=== PATIENT | male | born 1955 | race Caucasian/White ===

== ENCOUNTER → 2019-07-29 | Day surgery (SDC) | payer MEDICARE ==
[2019-07-08 11:12] LABS: BASOPHILS # (AUTO) 0.1 (0.0-0.1); EOSINOPHILS # (AUTO) 0.3 (0.0-0.4); EOSINOPHILS % 3.5 % (0.0-6.0); HEMOGLOBIN 15.3 g/dL (14.0-18.0); LYMPHOCYTES # (AUTO) 2.3 (1.0-3.2); LYMPHOCYTES % 32.4 % (18.0-39.1); MEAN CORPUSCULAR HEMOGLOBIN 31.2 pg (28-32); MEAN CORPUSCULAR HGB CONC 33.3 g/dL (31-35); MEAN CORPUSCULAR VOLUME 93.7 fL (81-99); MONOCYTES # (AUTO) 0.6 (0.2-0.8); MONOCYTES % 8.2 % (4.4-11.3); NEUTROPHILS # (AUTO) 3.9 (2.1-6.9); NEUTROPHILS % 54.6 % (38.7-80.0); PLATELET COUNT 249 x10e3/uL (140-360); RED BLOOD COUNT 4.91 x10e6/uL (4.3-5.7); RED CELL DISTRIBUTION WIDTH 13.5 % (11.7-14.4)
--- NOTE | 2019-07-08 12:14 | Diagnostic Imaging Report ---
Chest, 2 views, 07/08/2019. History: Preop, facial malignancy. Comparison: None available. Findings: The cardiomediastinal silhouette and pulmonary vasculature are within normal limits. The lungs are clear without evidence of consolidation or pleural effusion. There are no acute osseous or soft tissue abnormalities. Impression: No acute cardiopulmonary abnormality. Signed by: Servando Hankins on 07/08/2019 12:10 PM
[~2019-07-29] MED LIST: AMLODIPINE BESY10 MG PO; BALANCED SALT SOLN (OPTH) 15 ML BTL IO ONE; BISOPROLOL PO; CEFAZOLIN SOD 1 GM/NS 50ML 50 ML IV ONE; DEXAMETHASONE SOD PHOS INJ 4 MG/ML VIAL ONE; ECOTRIN325 MG PO; EPHEDRINE SULFATE INJ 50 MG/10 ML SYR ONE; EYE LUBRICANT OPTH OINT 3.5GM TUBE OP ONE; FENTANYL CITRATE/PF 100MCG/2 ML INJ ONE; HYDROCHLOROTHIAZIDE PO; LIDOCAINE 1% W/EPINEPHRINE 20 ML VIAL ONE; LIDOCAINE HCL 2% LOCAL INJ 5 ML SDV VIAL INJ ONE; LISINOPRIL-HCT1 EACH PO; MUPIROCIN 2% OINT 22 GM TUBE ONE; ONDANSETRON HCL INJ 2MG/ML 2ML 2 MG/ML VIAL ONE; PROPOFOL IV EMULSION 10 MG/ML 20 ML VIAL ONE; SEVOFLURANE INHAL SOLN 250 ML PEN BTL ONE
--- OUTSIDE RECORDS SUMMARY | 2019-07-29 06:49 | XMS REPORT ---
Author Author [facility] Address Unknown Phone Unavailable Care Team Providers Care Christian Counselor Name Role Phone MAUREEN LEIVA Unavailable Unavailable Problems This patient has no known problems. Allergies, Adverse Reactions, Alerts This patient has no known allergies or adverse reactions. Medications This patient has no known medications. Results Test Description Test Time Test Comments Text Results Atomic Results Result Comments CHEST 2 VIEWS 2019-07-08 12:10:00 [place] [address] Patient Name: RIANA ROJAS MR #: [id number] : 1955 Age/Sex: 63/M Req #: [id number] Adm Physician: Ordered by: MAUREEN LEIVA MD Report #: [id number] Location: OR Room/Bed: Procedure: [id number] DX/CHEST 2 VIEWS Exam Date: Exam Time: REPORT STATUS: Signed Chest, 2 views, 07/08/2019. History: Preop, facial malignancy. Comparison: None available. Findings: The cardiomediastinal silhouette and pulmonary vasculature are within normal limits. The lungs are clear without evidence of consolidation or pleural effusion. There are no acute osseous or soft tissue abnormalities. Impression: No acute cardiopulmonary abnormality. Signed by: Chavo Hankins on 07/08/2019 12:10 PM Dictated By: CHAVO HANKINS MD 1210 Transcribed By: LUC on 07/08/19 1210 COPY TO: MAUREEN LEIVA MD
[2019-07-29 11:25] VITALS: BP 110/72
--- NOTE | 2019-07-29 18:53 | Operative Report ---
DATE OF PROCEDURE: 07/29/2019 SURGEON: Pasha Rizzo MD PREOPERATIVE DIAGNOSES: 1. Malignant neoplasm, right lower eyelid. 2. Malignant neoplasm, right cheek. POSTOPERATIVE DIAGNOSES: 1. Basal-cell carcinoma, right lower eyelid. 2. Basal cell carcinoma of right cheek. PROCEDURES: 1. Excision of malignant neoplasm, right lower eyelid and right cheek. 2. Flap closure of right lower eyelid. 3. Flap closure of the right cheek 25 cm2. ANESTHESIA: General. HISTORY: The patient is a 63-year-old male, who has an ulcerated neoplasm on the right cheek. He states the lesion has been present for several years and growing in size. The lesion is now encroaching on the infraorbital rim in the right lower eyelid. The risks, benefits, and alternatives of treatment were discussed with the patient and he is prepared to undergo the procedure as outlined. PROCEDURE IN DETAIL: The patient was marked preoperatively in the holding area. He was brought to the operating theater and after the induction of adequate general anesthesia, he was prepped and draped in a supine position and a time-out was performed. The lesion measures approximately 3 cm in its greatest dimension, which is oriented vertically and extends from the right lower eyelid just above the infraorbital rim onto the midportion of the cheek. 1 cm margins were marked down around the visible portions of the malignant neoplasm. The area was then infiltrated with 1% Xylocaine with epinephrine. A total of 7 mL was used. After waiting an appropriate amount of time for maximum vasoconstrictive effect, the neoplasm was excised through the skin and subcutaneous tissues into the deep subcutaneous plane. Bleeding was controlled using the electrocautery. The entire specimen was elevated en bloc of the deep subcutaneous plane and then oriented with sutures. Frozen section is obtained on the lesion, which confirms that it is a basal-cell carcinoma and that all margins were adequately excised including the deep surface. At this point, the defect measures approximately 8 cm2 and extends from the inferior border of the lower eyelid at the level of the infraorbital rim down onto the midportion of the cheek. It was felt that given the patient's skin laxity/tone that a cheek rotation flap would best close the defect and give the best cosmetic result. An incision was designed along the lateral border of the infraorbital rim extending over the zygomatic arch to the preauricular area. The entire right cheek was then infiltrated with 1% Xylocaine with epinephrine. A total of 12 mL was used. After waiting appropriate amount of time for maximum vasoconstrictive effect, the incision along the infraorbital rim towards the preauricular area was made through the skin and subcutaneous tissues. Bleeding was controlled using electrocautery. Using the electrocautery, the cheek flap was undermined in a deep subcutaneous plane, leaving the facial musculature in situ. All bleeding points were coapted using the electrocautery. Once the cheek had been sufficiently undermined, it was rotated and advanced so that the leading edge was then made adjacent to the furthest edge of the defect and there was no undue tension on the face nor the right lower eyelid. A sharp SuperCut scissor was then used to curve the end of the flap to match the contours of the wound defect. At this point, the flap was anchored to the inferior orbital rim using 4-0 Monocryl in an interrupted buried fashion, where the flap was brought to the periosteum of the rim and anchored. At this point, the soft tissues were then closed using 5-0 nylon in an interrupted horizontal mattress fashion inferiorly on the cheek. Redundant skin and subcutaneous tissue, which was tenting up was excised with a #15 blade and the wound edges were made hemostatic using the electrocautery and the remainder of the incision was closed with 5-0 nylon interrupted horizontal mattress fashion. The cheek flap measured 25 cm2 and the lower eyelid defect measured 2 cm2. The flap was well vascularized at the completion of the procedure. Bactroban ointment, Xeroform gauze were applied to the sutures and a sterile dressing was applied to the right face. The estimated blood loss for the procedure was 10 to 15 mL. The patient tolerated the procedure well and was brought to recovery room in satisfactory condition and discharged with a postoperative instruction sheet as well as a followup appointment. MD SLADE Delgado/MARCELO /[id number]
== END | disposition home or self-care (01) ==
LOC: OR 06:43
PROVIDERS: ATTEND Plastic Surgery
DX: C44.319 Basal cell carcinoma of skin of other parts of face (principal); C44.1122 Basal cell carcinoma of skin of right lower eyelid, including canthus; I10 Essential (primary) hypertension; I48.2 Chronic atrial fibrillation; F41.9 Anxiety disorder, unspecified; F17.210 Nicotine dependence, cigarettes, uncomplicated; Z88.6 Allergy status to analgesic agent; Z01.810 Encounter for preprocedural cardiovascular examination; Z01.812 Encounter for preprocedural laboratory examination; Z01.818 Encounter for other preprocedural examination; Z79.82 Long term (current) use of aspirin
CPT/HCPCS: 14041; 36415; 71046; 85025; 88305; 88331; 93005; J0690; J1100; J2001; J2405; J2704; J3010